=== PATIENT | male | born 1975 | race Caucasian/White ===

== ENCOUNTER 2022-01-23 19:00 | Emergency (ER) | payer OTHER ==
[2022-01-23 20:06] LABS: BILIRUBIN NEGATIVE (NEGATIVE); BLOOD 3+ Ery/uL (NEGATIVE); GLUCOSE (U) NORMAL (NORMAL); LEUKOCYTES 3+ Leu/uL (NEGATIVE); NITRITE POSITIVE (NEGATIVE); PROTEIN 2+ mg/dL (NEGATIVE); UROBILINOGEN 0.2 mg/dL (0.2-1.0); pH 6.5 (5.0-9.0)
[2022-01-23 20:07] LABS: CLARITY CLOUDY (CLEAR); COLOR BROWN (YELLOW)
[2022-01-23 20:12] LABS: BACTERIA 1+; URINARY RBC 20-50; URINARY WBC TNTC
[2022-01-23 20:20] LABS: BASOPHIL 0.6 % (0-2); EOSINOPHIL 2.8 % (0-5); HGB 13.8 g/dl (13.2-18.0); LYMPHOCYTE 15.9 % (15-48); MCH 29.4 pg (25.0-31.0); MCHC 32.1 g/dL (32.0-36.0); MCV 91.7 fL (78.0-100.0); MONOCYTE 8.3 % (0-12); MPV 9.3 fL (6.0-9.5); NEUTROPHIL 71.7 % (41-80); NRBC 0; PLT 388 K/uL (150-400); RBC 4.69 M/uL (4.70-6.00); RDW 13.2 % (11.5-14.0); WBC 12.2 K/uL (4.0-10.5)
[2022-01-23 20:36] LABS: ALBUMIN 3.7 g/dL (3.4-5.0); BILIRUBIN - TOTAL 0.4 mg/dL (0.2-1.0); BUN/CREAT RATIO (CALC) 12.9 RATIO; CREATININE 0.85 mg/dL (0.67-1.17); POTASSIUM 4.1 mmol/L (3.5-5.1); TOTAL PROTEIN 7.7 g/dL (6.4-8.2)
[2022-01-23] MEDS ORDERED: BACTRIM DS TAB1 EACH PO (21:17)
[2022-01-23] MEDS ORDERED: DICLOFENAC SODI75 MG PO (21:33)
[2022-01-23] MEDS ORDERED: ONDANSETRON HCL4 MG PO (21:33)
== END 2022-01-23 21:48 | disposition home or self-care (01) ==
LOC: FER 19:00
PROVIDERS: Physician Assistant Medical
DX: N30.00 Acute cystitis without hematuria (principal); J45.909 Unspecified asthma, uncomplicated; F17.200 Nicotine dependence, unspecified, uncomplicated
CPT/HCPCS: 36415; 80053; 81001; 85025; J0696; J1885; J2405; J7030